=== PATIENT | male | born 1990 | race Hispanic/Latino ===

== ENCOUNTER 2019-11-29 08:20 | Emergency (ER) | payer SELFPAY ==
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
[2019-11-29] MEDS ORDERED: TETRACAINE HCL 0.5% 4ML OPTH ONE (08:56)
[2019-11-29] MEDS ORDERED: FLUORESCEIN SODIUM 1 MG/WRAP ONE (08:56)
[2019-11-29] MEDS ORDERED: LIDOCAINE 1% W/EPI 1:100,000 MDV 20 ML VIAL ONE (09:03)
[2019-11-29] MEDS ORDERED: TETANUS & DIPHTHERIA TOX,ADULT 0.5 ML VIAL ONE (09:04)
[2019-11-29 09:52] VITALS: TEMP 98.4
[2019-11-29 09:54] VITALS: BP 130/85; O2SAT 99
== END 2019-11-29 09:39 | disposition home or self-care (01) ==
LOC: ER 08:20
PROC: 0JQ10ZZ Repair Face Subcutaneous Tissue and Fascia, Open Approach (ICD-10-PCS; principal; 2019-11-29)
DX: S01.81XA Laceration without foreign body of other part of head, initial encounter (principal); H11.32 Conjunctival hemorrhage, left eye; S05.01XA Injury of conjunctiva and corneal abrasion without foreign body, right eye, initial encounter; W45.8XXA Other foreign body or object entering through skin, initial encounter; Y93.9 Activity, unspecified; Y92.89 Other specified places as the place of occurrence of the external cause; Y99.8 Other external cause status; Z23 Encounter for immunization
CPT/HCPCS: 90471; 90714; 99283